=== PATIENT | male | born 1955 | race Caucasian/White ===

== ENCOUNTER 2018-07-09 08:56 | Day surgery (SDC) | payer OTHER ==
[~2018-07-09] VITALS: Ht 180.3 cm; Wt 82.0 kg
[2018-07-09 09:56] VITALS: Ht 180.3 cm; Wt 82.0 kg
[2018-07-09] MEDS ORDERED: ELAVIL (10:00)
[2018-07-09 11:05] VITALS: BP 117/69; PULSE 60; RESP 19
[2018-07-09] MEDS ORDERED: LIDOCAINE 2% (SDV) 5 ML INJ ONE (11:11)
[2018-07-09] MEDS ORDERED: PROPOFOL 60 ML ONE (11:11)
--- NOTE | 2018-07-09 11:18 | PREAC ---
Date/Time of Note Date/Time of Note DATE: 07/09/18 TIME: 11:16 Anesthesia Eval and Record Evaluation Time Pre-Procedure Interview DATE: 07/09/18 TIME: 11:16 Age 63 Sex male NPO: 8 hrs Preoperative diagnosis COLON SCREENING Planned procedure Colonoscopy Past Medical History Past Medical History: None Surgery & Anesthesia Issues No known issue Meds Anticoagulation: No Beta Ethan within 24 hr: No Reason Beta Ethan not given: Pt. not on B-Ethan Reported Medications [Elavil] No Conflict Check 07/09/18 Meds reviewed: Yes Allergies Coded Allergies: No Known Allergy (Unverified , 07/09/18) Allergies Reviewed: Yes Labs/Studies Labs Reviewed: Reviewed by anesthesiologist test: N/A Studies: ECG Pre-procedure Exam Last vitals Vital Signs Date Temp Pulse Resp B/P (MAP) Pulse Ox O2 O2 Flow FiO2 Time Delivery Rate 07/09/18 97.7 60 19 117/69 98 Room Air 11:05 (85) Airway: Adequate mouth opening, Adequate thyromental dist Mallampati: Mallampati II Teeth: Normal Lung: Normal Heart: Normal ASA Physical Status ASA physical status: 2 Emergency: None Planned Anesthetic General/MAC: MAC Planned Pain Management Parenteral pain med Pre-operative Attestations Prior to commencing anesthesia and surgery, the patient was re-evaluated, there was verification of: *The patient's identity *The results of appropriate recent lab work and preoperative vital signs *The above evaluation not changing prior to induction *Anesthetic plan, risk benefits, alternative and complications discussed with patient/family; questions answered; patient/family understands, accepts and wishes to proceed. SANCHEZ FRANKS MD Jul 09, 2018 11:18
--- NOTE | 2018-07-09 11:46 | PAC ---
Date/Time of Note Date/Time of Note DATE: 07/09/18 TIME: 11:45 Post-Anesthesia Notes Post-Anesthesia Note Last documented vital signs Vital Signs Date Temp Pulse Resp B/P (MAP) Pulse Ox O2 O2 Flow FiO2 Time Delivery Rate 07/09/18 97.7 60 19 117/69 98 Room Air 11:05 (85) Activity: WNL Respiratory function: WNL Cardiovascular function: WNL Mental status: Baseline Pain reasonably controlled: Yes Hydration appropriate: Yes Nausea/Vomiting absent: Yes Comments BP:124/56, P:67, Spo2:100%, T:98,8 SANCHEZ FRANKS MD Jul 09, 2018 11:46
[2018-07-09 12:07] VITALS: BP 131/77; RESP 15
== END 2018-07-09 12:46 | disposition home or self-care (01) ==
LOC: GIL 08:56
PROVIDERS: ATTEND Internal Medicine Gastroenterology
DX: Z12.11 Encounter for screening for malignant neoplasm of colon (principal); D12.5 Benign neoplasm of sigmoid colon
CPT/HCPCS: 88305